=== PATIENT | female | born 1955 ===

== ENCOUNTER → 2022-04-21 08:31 | Outpatient (BNVA) | payer OTHER, SELFPAY | PROVIDERS: PCP Internal Medicine Medical Oncology; Visit Provider Nurse Practitioner Family | DX: Z13.89 Encounter for screening for other disorder (principal) ==

== ENCOUNTER → 2022-07-21 09:34 | Outpatient (BNVA) | payer OTHER, SELFPAY | PROVIDERS: PCP Internal Medicine Medical Oncology; Visit Provider Nurse Practitioner Family ==

== ENCOUNTER 2022-12-08 14:04 | Day surgery (SDC) | payer MEDICARE, OTHER, SELFPAY ==
[2022-12-04 10:55] VITALS: BMI 28.3
--- NOTE | 2022-12-07 10:48 | P.CONAN_ITS ---
Documented by User: Bessie Bhatia NP 12/07/22 10:49 HPI - Anesthesia Eval Consult details Narrative: 67yo F for Colonoscopy PMFSH Past Medical History Medical History (Updated 12/04/22 @ 10:41 by Pretty Colon RN) HTN (hypertension) Surgical History Surgical History (Updated 12/04/22 @ 10:52 by Pretty Colon RN) H/O colonoscopy Social History Social History Household Members: None Alcohol intake: current Alcohol intake frequency: holidays/special occasions only Patient Tobacco Use Status: Never used Tobacco Use of substances other than those prescribed or required for medical reasons: No Have you been hit, kicked, punched, or otherwise hurt by someone within the past year? If so, by whom?: No Are you DNR?: No Advance Directives: No (sister is primary contact) Advance Directives Information Provided: Yes (brochure mailed) Advance Directives on File: No Recently lost weight without trying: No Eating poorly because of decreased appetite: No Nutrition Risks: No Nutritional Risk FDLMP: N/A Poor oral hygiene: No Meds Allergies Allergy/AdvReac Type Severity Reaction Status Date / Time No Known Allergies Allergy Verified 07/21/22 09:47 Home Medications Medication Instructions Recorded Confirmed Last Taken Type cholecalciferol (vitamin D3) 25 25 mcg PO DAILY 04/20/22 12/04/22 Unknown History mcg (1,000 unit) capsule losartan 100 mg tablet 100 mg PO DAILY 04/20/22 12/04/22 Unknown History pravastatin 40 mg tablet 40 mg PO DAILY 04/20/22 12/04/22 Unknown History zinc gluconate 100 mg tablet 100 mg PO DAILY 04/20/22 12/04/22 Unknown History Exam Exam Date and Time: December 07, 2022 1048 Height,Weight and Vital Signs: Height 5 ft 1 in Weight 68.039 kg Assessment and Plan Assessment Anesthesia Assessment: Chart Reviewed Documented by User: Jhonatan Posey MD 12/08/22 15:18 [facility] Past Medical History Medical History (Updated 12/04/22 @ 10:41 by Pretty Colon RN) HTN (hypertension) Family History Family history of problems with anesthesia: No Surgical History Surgical History (Updated 12/04/22 @ 10:52 by Pretty Colon RN) H/O colonoscopy History of Problems with Anesthesia: No Social History Social History Household Members: None Alcohol intake: current Alcohol intake frequency: holidays/special occasions only Patient Tobacco Use Status: Never used Tobacco Use of substances other than those prescribed or required for medical reasons: No Have you been hit, kicked, punched, or otherwise hurt by someone within the past year? If so, by whom?: No Are you DNR?: No Advance Directives: No (sister is primary contact) Advance Directives Information Provided: Yes (brochure mailed) Advance Directives on File: No Recently lost weight without trying: No Eating poorly because of decreased appetite: No Nutrition Risks: No Nutritional Risk FDLMP: N/A Poor oral hygiene: No Meds Allergies Allergy/AdvReac Type Severity Reaction Status Date / Time No Known Allergies Allergy Verified 07/21/22 09:47 Home Medications Medication Instructions Recorded Confirmed Last Taken Type cholecalciferol (vitamin D3) 25 25 mcg PO DAILY 04/20/22 12/04/22 Unknown History mcg (1,000 unit) capsule losartan 100 mg tablet 100 mg PO DAILY 04/20/22 12/04/22 Unknown History pravastatin 40 mg tablet 40 mg PO DAILY 04/20/22 12/04/22 Unknown History zinc gluconate 100 mg tablet 100 mg PO DAILY 04/20/22 12/04/22 Unknown History Exam Airway Mallampati Class: II TM Dist: >3cm Neck ROM: Full Loose/Missing/Broken Teeth: No Heart: ok Lungs: ok Assessment and Plan Assessment Anesthesia Assessment: Anesthesia Plan Discussed Final Anesthetic Review Family History of Problems with Anesthesia: No History of Problems with Anesthesia: No NPO: Yes ASA Class: II Final Preanesthetic Review: No Changes in Pt Med Stat, Meds/Allgs Chart Reviewed, Consent Obtained/Reviewed and Anes Risks/Benef Reviewed Patient Risk: Low Procedure Risk: Low Anesthetic Plan Anesthetic Plan: MAC: and Agree w/ Assess. and Plan Disposition: Standard PACU
--- NOTE | 2022-12-08 13:24 | PC.NURSE ---
called and left a message pt no show will attempt again a call
[2022-12-08 14:07] VITALS: BP 142/86; PULSE 84; RESP 18; TEMP 35.9; O2SAT 97
[2022-12-08] MEDS: Lactated Ringers 1,000 ML 100 ML IVCONT (14:26)
--- NOTE | 2022-12-08 14:56 | MHC.SHP ---
Pre-Procedural Eval Section A Date of Service: 12/08/22 Section B Chief Complaint: Screening Details of Present Illness: hyperlipidemia, hypertension Present Medications: see Short Stay Collaborative assessment History of Previous Operations: No relevant previous surgery Allergies: Allergies Allergy/AdvReac Type Severity Reaction Status Date / Time No Known Allergies Allergy Verified 07/21/22 09:47 Review of Systems Review of Systems Comment: 10 point ROS negative Exam Exam Comment: Gen appear: No acute distress HEENT: no icterus Chest: No overt resp distress Abd: soft, nontender, nondistended Psych: Stable affect, answering questions appropriately Neuro: A/Ox3 noted to move all extremities spontaneously Ext: no peripheral edema Plan Diagnosis/Plan: Unchanged I have reviewed the history and physical and performed a pertinent physical examination on my patient. No changes have occurred unless specified. Time Spent With Patient Time: Total time managing care of this patient today ____ minutes.
--- NOTE | 2022-12-08 15:35 | P.OP_ITS ---
Operative Note Operative Note Date of Service: 12/08/22 Narrative: Procedure: Colonoscopy Indication: Screening Endoscopist: Mona Mohan MD Anesthesia Provider: Dr Jhonatan Posey Anesthesia type: MAC Instrument: Olympus [id number]-[id number] Consent: Indication, risks vs benefits, and alternatives were discussed with the patient who gave written informed consent to proceed. EKG, pulse, pulse oximetry and blood pressure were monitored throughout the procedure. Please see anesthesia flowsheet. Procedure: The patient was brought to the procedure room and placed in the left lateral decubitus position. IV medications were administered by the anesthesia provider in attendance. A digital rectal exam was performed which was normal. The colonoscope was then inserted through the anus and advanced through the colon to the cecum at 70 cm,and terminal ileum. Ileocecal valve (which was somewhat patulous) and appendiceal orifice were identified. Mucosa was carefully examined under high definition white light as the instrument was slowly withdrawn in a retrograde panoramic fashion. Retroflexion was performed in ascending colon and rectum. The procedure was not difficult. There were no immediate obvious complications. The quality of the prep was BBPS: 3+2+2 = adequate Withdrawal time 12 minutes. Limitations: No limitations. Findings: Mucosa: Normal to cecum and terminal ileum. Protruding lesions: * Large internal hemorrhoids without stigmata of recent bleeding. Impression: 1. Normal colon and terminal ileum mucosa 2. Internal hemorrhoids Recommendations: - Repeat colonoscopy for asymptomatic colorectal screening in 10 years.
[2022-12-08 15:40] VITALS: BP 100/68; PULSE 75; RESP 18; TEMP 36.3; O2SAT 97
[2022-12-08 15:55] VITALS: BP 131/82; PULSE 65; RESP 16; O2SAT 98
[2022-12-08 16:10] VITALS: BP 130/83; PULSE 67; RESP 16; TEMP 36.2; O2SAT 98
== END 2022-12-08 16:16 | disposition home or self-care (01) ==
PROVIDERS: PCP Internal Medicine; Visit Provider Internal Medicine
PROC: 0DJD8ZZ Inspection of Lower Intestinal Tract, Via Natural or Artificial Opening Endoscopic (ICD-10-PCS; CPT 45378; principal; 2022-12-08 15:40)
DX: Z12.11 Encounter for screening for malignant neoplasm of colon (principal); K59.04 Chronic idiopathic constipation; I10 Essential (primary) hypertension; E78.5 Hyperlipidemia, unspecified; K64.8 Other hemorrhoids; Z79.899 Other long term (current) drug therapy
CPT/HCPCS: 45378

== ENCOUNTER → 2022-12-08 14:04 | Outpatient (BNV) | payer OTHER, SELFPAY | PROVIDERS: PCP Internal Medicine; Visit Provider Internal Medicine | DX: Z12.11 Encounter for screening for malignant neoplasm of colon (principal); K64.8 Other hemorrhoids | CPT/HCPCS: 45378 ==

== ENCOUNTER 2022-12-28 10:05 | Outpatient (AMB) | payer OTHER, SELFPAY ==
--- NOTE | 2022-12-28 10:06 | A.OFFVIS_ITS ---
Intake Vital Signs 12/28/22 10:07 Height 5 ft 1 in Weight 145 lb 15.136 oz BMI 27.6 BP 107/73 Blood Pressure Location Lt brachial Position Sitting Pulse 101 H Pulse Source Pulse Oximeter Intake Visit Reasons: S/p colon [place] Intake Note: Pt presents to the office today for a s/p [place]. Pt states she is feeling well. Pt denies any N/V/D. Allergies No Known Allergies Allergy (Verified 12/28/22 10:08) HPI S/p colon [place] HPI Details LAST VISIT Chronic idiopathic constipation Continue current regimen. Patient can take [id number] medications that were prescribed on as needed basis. Screen for colon cancer May proceed and book the procedure. Patient denies any cardiac or respiratory symptoms. No history of sleep apnea. Not on any anticoagulation medication. No history of infectious diseases in the past or present. No trouble with anesthesia in the past. I will see patient after the procedure. What to expect before during and after procedure discussed with patient. Clear liquid diet and bowel prep stressed with patient. Patient is agreeable to this plan and verbalizes understanding of instructions. She was given the opportunity to ask questions and all questions answered. COLONOSCOPY RESULTS Findings: Mucosa: Normal to cecum and terminal ileum. Protruding lesions: * Large internal hemorrhoids without stigmata of recent bleeding. Impression: 1. Normal colon and terminal ileum mucos a 2. Internal hemorrhoids Recommendations: - Repeat colonoscopy for asymptomatic co lorectal screening in 10 years. TODAY'S VISIT Patient is here today for follow-up and to discuss colonoscopy results. Patient denies any ill effects from the prep, anesthesia procedure itself. However patient does report that she is more constipated. Now she is having bowel movements every 2-3 days. Patient states that she is using supplements to help her go to the bathroom. Patient denies melena, hematochezia, unintentional weight loss or ribbon like stools. Patient denies any dyspepsia, dysphagia or odynophagia. It patient had normal colonoscopy. Internal hemorrhoids found. Patient denies any rectal pain or bleeding after bowel movements. [facility] Medical History HTN (hypertension) Surgical History H/O colonoscopy Social History Household Members: None Alcohol intake: current Alcohol intake frequency: holidays/special occasions only Patient Tobacco Use Status: Never used Tobacco Review of Systems Const Denies weight gain and Denies weight loss ENT Reports no additional complaints, Denies dysphagia and Denies odynophagia Card Reports no additional complaints Resp Reports no additional complaints GI Denies abdominal pain, Denies belching, Denies melena, Denies bloating, Denies change in bowel habits, Denies dysphagia, Denies excessive flatus, Denies dyspepsia, Denies heartburn, Denies diarrhea, Denies loose stools, Denies nausea, Denies odynophagia and Denies vomiting Musc Reports no additional complaints Neuro Reports no additional complaints Psych Reports no additional complaints Endo Reports no additional complaints Physical Exam Vital Signs: BMI result Body Mass Index 27.6 Const General: healthy appearing, no acute distress and well developed Nutritional Appearance: well nourished Orientation/consciousness: patient oriented x3 HEENT Head: Yes normal to inspection, Yes normocephalic and Yes atraumatic Face and sinus: Yes normal facial exam Mouth: Normal oral and palatal mucosa present Throat: Yes posterior oropharynx normal, Yes tonsils normal and Yes uvula midline Eyes General: appearance normal, both eyes and all related structures Neck Neck: Yes normal visual inspection, Yes full ROM and Yes trachea midline Thyroid: Thyroid normal Resp Effort & Inspection: normal respiratory effort, able to speak in complete sent ences, no tracheal deviation and symmetric chest movement Auscultation: clear to auscultation bilaterally Cardio Rate: regular rate Heart sounds: S1 normal heart sound present and S2 normal heart sound present GI Inspection: Yes normal to inspection and No distended Palpation (GI): Soft to palpation, not firm, nontender and No hepatosplenomegaly present Auscultation: normal bowel sounds General: Yes no CVA tenderness Back/Spine/Pelvis Back: no CVA tenderness Skin General skin exam: elasticity normal, turgor normal and dry skin Neuro General: patient oriented x3 Psych Appearance: grossly normal Mental Status: mental status grossly normal Assessment & Plan Assessment & Plan (1) Chronic idiopathic constipation: Code(s): K59.04 - Chronic idiopathic constipation (2) Status post colonoscopy: Code(s): Z98.890 - Other specified postprocedural states Plan Asymptomatic colorectal screening in 10 years, sooner if clinically necessary. Patient will follow-up with our office on as needed basis. Patient is agreeable to this plan and verbalizes understanding of instructions. She was given the opportunity to ask questions and all questions answered. Thank you for allowing me to participate in her care Coding Level of Care Code Est Pt Level 3 (89830) Diagnoses Chronic idiopathic constipation K59.04 Status post colonoscopy Z98.890 Time Spent (min) 25 Comment 15 minutes spent with patient and additional 10 minutes spent reviewing her records
[2022-12-28 10:07] VITALS: BP 107/73; PULSE 101; BMI 27.6
== END 2022-12-28 10:24 | disposition home or self-care (01) ==
PROVIDERS: PCP Internal Medicine; Visit Provider Nurse Practitioner Family
DX: K59.04 Chronic idiopathic constipation (principal); Z98.890 Other specified postprocedural states
CPT/HCPCS: 99213

== ENCOUNTER → 2022-12-28 10:05 | Outpatient (BNVA) | payer OTHER, SELFPAY | PROVIDERS: PCP Internal Medicine; Visit Provider Nurse Practitioner Family ==